=== PATIENT | male | born 1995 | race Caucasian/White ===

== ENCOUNTER 2025-04-10 12:17 | Outpatient (CLI) | payer BC, SELFPAY | END 2025-04-10 12:18 | disposition home or self-care (01) | LOC: AMB 04-12 09:23 | PROVIDERS: Visit Provider Emergency Medicine Emergency Medical Services | DX: S49.92XA Unspecified injury of left shoulder and upper arm, initial encounter (principal); Y35.833A Legal intervention involving a conducted energy device, suspect injured, initial encounter; Y92.9 Unspecified place or not applicable | CPT/HCPCS: A0425; A0427 ==